=== PATIENT | male | born 2005 | race Caucasian/White ===

== ENCOUNTER 2025-02-24 00:27 | Emergency (ER) | payer OTHER ==
[~2025-02-24] VITALS: Ht 177.8 cm; Wt 70.3 kg
[~2025-02-24 00:27] MED LIST: KAVINACE; [UNRECOGNIZED DRUG - CODE]
[2025-02-24 01:37] VITALS: BP 116/77; TEMP 97.9; O2SAT 98
== END 2025-02-24 02:50 | disposition left against medical advice (07) ==
LOC: ER 00:34
DX: L08.9 Local infection of the skin and subcutaneous tissue, unspecified (principal); Z53.21 Procedure and treatment not carried out due to patient leaving prior to being seen by health care provider